=== PATIENT | male | born 1965 | race Caucasian/White ===

== ENCOUNTER 2024-07-07 19:47 | Emergency (ER) | payer BC, SELFPAY ==
[2024-07-07 19:49] VITALS: BP 181/92; PULSE 73; RESP 16; TEMP 36.1; O2SAT 100
--- NOTE | 2024-07-07 20:04 | ED.GENADUL_ITS ---
Discharge Plan Disposition Patient Disposition: Home Condition: Improving Discharge Details Chief Complaint: Laceration Clinical Impression: Knee laceration Primary Care Provider: [facility] Provider: Shawn Tabor Home Meds and New Rx's Prescriptions: No Action valsartan [Diovan] 40 mg tablet 20 mg PO ONCE Discharge Instructions Instructions: Laceration Repair With Stitches ED Additional Instructions: Please keep wound clean and dry. Your sutures will dissolve within 7 to 10 days. Please return to the emergency department for any worsening symptoms HPI General Date/Time Provider Initiated Documentation: 07/07/24 19:55 . HPI Narrative: 59-year-old male presents after sustaining laceration to right knee while mountain biking. Related Data Home Medications ?Medication ?Instructions ?Recorded ?Confirmed valsartan 40 mg tablet (Diovan) 20 mg PO ONCE 07/07/24 07/07/24 Allergies Allergy/AdvReac Type Severity Reaction Status Date / Time No Known Allergies Allergy Unverified 07/07/24 19:52 General Stated Complaint: Laceration MABEL: 5 Exam Narrative Exam Narrative: Alert interactive No cranial facial trauma No neck trauma No thoracoabdominal trauma Speaking full sentences no respiratory distress Right lower extremity: 3 cm linear laceration mildly gaping anterior lateral prepatellar region hemostatic no foreign bodies, with adjacent avulsion injury to soft tissue superficial, full range of motion flexion extension, no joint effusion, no joint laxity, patient ambulatory without assistance Alert interactive full strength and sensation, ambulatory no ataxia normal speech no cranial nerve deficit Course Vital Signs Vital signs: Vital Signs Temperature 36.1 C L 07/07/24 19:49 Pulse 73 07/07/24 19:49 Respiratory Rate 16 07/07/24 19:49 Blood Pressure 181/92 H 07/07/24 19:49 Pulse Oximetry 100 07/07/24 19:49 Temperature 36.1 C L 07/07/24 19:49 Pulse 73 07/07/24 19:49 Respiratory Rate 16 07/07/24 19:49 Respiratory Effort Normal 07/07/24 19:53 Blood Pressure 181/92 H 07/07/24 19:49 Blood Pressure Position Sitting 07/07/24 19:49 Pulse Oximetry 100 07/07/24 19:49 Oxygen Delivery Method Room Air 07/07/24 19:49 Oxygen Flow Rate 0 07/07/24 19:49 Pain Level 1 07/07/24 19:49 Procedures Laceration Laceration 1: Site: lower extremity Side (If applicable): right Size (cm): 3 Description: linear Depth: simple, single layer Local anesthetic: other anesthetic Pre-repair: wound explored, irrigated extensively and deep structures intact Skin layer closed with: vicryl Size (cm): 5-0 Number of sutures: 3 Technique: simple, interrupted Medical Decision Making 59-year-old male presents after sustaining laceration to right knee hemostatic no foreign body mildly gaping approximately 3 cm, adjacent superficial avulsion injury, right prepatellar soft tissue, will be given Tdap booster, will apply L ET gel, will irrigate extensively and closed with observable sutures given examination full range of motion no laxity to joint lower suspicion for fracture or dislocation likely contusion, no evidence of thoracoabdominal cranial or spine trauma. Patient hypertension likely related to discomfort. 21: 20 repaired with 3 x 5-0 Vicryl after extensive irrigation, L ET gel applied for anesthesia; home care instruction return precautions given. Quality:SDOH Health Related Social Needs: No Data to Display PFSH All Active Problems (Updated 07/07/24 @ 21:21 by Shawn Tabor MD) Knee laceration (Acute) Social History Smoking risk assessment performed?: No
[2024-07-07] MEDS: Lidocaine/Prilocaine Cream 5 GM TUBE (20:10)
== END 2024-07-07 21:36 | disposition home or self-care (01) ==
PROVIDERS: Emergency Provider Emergency Medicine
DX: S81.011A Laceration without foreign body, right knee, initial encounter (principal); V18.0XXA Pedal cycle driver injured in noncollision transport accident in nontraffic accident, initial encounter; Z23 Encounter for immunization
CPT/HCPCS: 12002; 90471; 90715